=== PATIENT | female | born 1955 | race Caucasian/White ===

== ENCOUNTER → 2019-04-30 | Outpatient (CLI) | payer OTHER ==
--- NOTE | 2019-05-01 09:04 | KCIC ---
MRI right knee without contrast dated 04/30/2019. No comparison available. CLINICAL INDICATION: Right knee pain. TECHNIQUE: Routine multiplanar sequence MR imaging performed. FINDINGS: Moderate tricompartmental hypertrophic change with small marginal osteophytes. Thinning and surface irregularity of the articular cartilage throughout. There are broad zones of full-thickness cartilage loss at the weightbearing surfaces medial femoral condyle and medial tibial plateau. Patchy subchondral edema in the marrow of the medial and lateral femoral condyle and medial tibial plateau. There is also full-thickness cartilage loss at the medial and lateral femoral trochlea and trochlear groove and posterior aspect of lateral femoral condyle. Small joint effusion. Large complex popliteal cyst measures up to 10 cm craniocaudal. There intra-articular loose bodies measuring up to 1.5 cm. The anterior cruciate ligament is not identified and likely chronically torn. There is some mild increased signal in the proximal PCL. Medial and lateral collateral complexes are intact. Iliotibial band, popliteus tendon and pes anserine complex within normal limits. Quadriceps and patellar tendon are intact. No abnormality of the medial or lateral retinaculum. The posterior horn and body of medial meniscus is not identified consistent with tear. There is redundant meniscal tissue at the intercondylar notch. The lateral meniscus is small and blunted morphology. There is focal radial tearing of the lateral meniscal root with a small oblique tear at the posterior horn. IMPRESSION: 1. 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 There there are broad zones of full-thickness cartilage loss at the medial compartment with smaller zones of full-thickness cartilage loss at the anterior and lateral compartment. 2. Complex tearing of the medial meniscus with probable bucket-handle component extending into the intercondylar notch. 3. Complex tear posterior horn and root of lateral meniscus. 4. Small joint effusion and large complex popliteal cyst. There are multiple intra-articular loose bodies. 5. Nonvisualization of the anterior cruciate ligament, likely related to chronic tear. There is mild increased signal of the PCL which could be related to degeneration or intrasubstance partial tearing. Electronically signed by: Rakan Perez MD (05/01/2019 9:01 AM) [facility]
== END | disposition home or self-care (01) ==
LOC: KCIC MRI 15:52
PROVIDERS: ATTEND Family Medicine
DX: S83.231A Complex tear of medial meniscus, current injury, right knee, initial encounter (principal); S83.271A Complex tear of lateral meniscus, current injury, right knee, initial encounter; M17.11 Unilateral primary osteoarthritis, right knee; M94.261 Chondromalacia, right knee; M25.461 Effusion, right knee; M71.21 Synovial cyst of popliteal space [Baker], right knee; X58.XXXA Exposure to other specified factors, initial encounter; Y93.89 Activity, other specified; Y92.89 Other specified places as the place of occurrence of the external cause; Y99.8 Other external cause status
CPT/HCPCS: 73721

== ENCOUNTER → 2019-05-11 | Outpatient (CLI) | payer OTHER ==
[~2019-05-11] MED LIST: ASCO500C PO; CALC500T30 PO
[2019-05-11 09:40] LABS: BASO # 0.1 x10^3/uL (0.0-0.2); BASO % 1 % (0-3); EOS # 0.2 x10^3/uL (0.0-0.7); EOS % 3 % (0-3); HEMATOCRIT 44.4 % (36.0-47.0); HEMOGLOBIN 14.5 g/dL (12.0-15.5); LYMPH # 1.2 x10^3/uL (1.0-4.8); LYMPH % 20 % (24-48); MEAN CORPUSCULAR HEMOGLOBIN 30 pg (25-35); MEAN CORPUSCULAR HGB CONC 33 g/dL (31-37); MEAN CORPUSCULAR VOLUME 91 fL (79-100); MONO # 0.5 x10^3/uL (0.0-1.1); MONO % 9 % (0-9); NEUT % 68 % (31-73); PLATELET COUNT 246 x10^3/uL (140-400); RED BLOOD COUNT 4.91 x10^6/uL (3.50-5.40); RED CELL DISTRIBUTION WIDTH 13.7 % (11.5-14.5); WHITE BLOOD COUNT 5.9 x10^3/uL (4.0-11.0)
[2019-05-11 09:46] LABS: ALBUMIN 3.8 g/dL (3.4-5.0); CREATININE 0.9 mg/dL (0.6-1.0); GFR 62.6
[2019-05-11 09:56] LABS: PROTHROMBIN TIME PATIENT 12.1 SEC (11.7-14.0)
--- NOTE | 2019-05-11 13:22 | EKG ---
[facility] [address] [place] [address] Test Date: 2019-05-11 Test Time: 13:03:02 Pat Name: ROSIO GUERRERO Department: Room: Gender: F Secondary School Teacher: : 1955 Requested By: JEANNETTE VILLAREAL Order Number: [id number] Reading MD: Olman Liu Measurements Intervals Ben Bolt Rate: 62 P: -33 IA: 140 QRS: 29 QRSD: 88 T: 39 QT: 420 QTc: 429 Interpretive Statements SINUS RHYTHM QRS(T) CONTOUR ABNORMALITY CONSIDER INFERIOR INFARCT T ABNORMALITY IN ANTERIOR LEADS ABNORMAL ECG RI6.02 No previous ECG available for comparison Electronically Signed On 05-12-2019 14:15:28 MICE RAISER by Olman Liu
--- NOTE | 2019-05-11 14:40 | RAD ---
EXAM: CHEST 2 VIEWS. HISTORY: Preoperative risk factors. COMPARISON: None. FINDINGS: Frontal and lateral views of the chest are obtained. There are no confluent infiltrates. There is no pneumothorax or pleural effusion. The heart is not enlarged. IMPRESSION: 1. No confluent infiltrates. Electronically signed by: Alexandro Dasilva MD (05/11/2019 2:37 PM) [facility]
== END | disposition home or self-care (01) ==
LOC: SURGPAT 13:16
PROVIDERS: ATTEND Orthopaedic Surgery Sports Medicine
DX: Z01.818 Encounter for other preprocedural examination (principal); M17.11 Unilateral primary osteoarthritis, right knee
CPT/HCPCS: 36415; 71046; 80048; 82040; 82306; 85025; 85610; 85651; 85730; 87641; 93005

== ENCOUNTER 2019-05-25 08:45 | Observation (INO) | payer OTHER ==
[2019-05-25] VITALS (7 sets, daily range): BP systolic 109–135; BP diastolic 68–85
[~2019-05-25] VITALS: Ht 175.3 cm; Wt 83.5 kg
[~2019-05-25 08:45] MED LIST changes: +ACETAMINOPHEN 500 MG TABLET PO PRN; +GABAPENTIN 300 MG CAPSULE. PO PRN; +HYDROmorphone 2 MG/ML VIAL IV PRN; +IV RINGERS,LACTATED 1000ML 1,000 ML IV SCH; +LIDOCAINE 1% PF 2 ML VIAL. ID PRN; +MORPHINE SULFATE 5 MG, KETOROLAC 30MG VIAL 30 MG, ROPIVacaine 0.5% PF 60 ML, EPINEPHrin... INT ART ONE; +ONDANSETRON PF 4 MG/2 ML VIAL. IV PRN; +PROCHLORPERAZINE 10 MG/2 ML VIAL. IV PRN; +TRANEXAMIC ACID 1,000 MG in IV NS 50ML -- 1ST BAG INJ ONE; +TRANEXAMIC ACID 1,000 MG in IV NS 50ML -- 2ND BAG INJ ONE; +fentaNYL PF VIAL 100 MCG/2 ML VIAL IV PRN
[2019-05-25] MEDS ORDERED: fentaNYL PF VIAL 100 MCG/2 ML VIAL ONE ×3 (09:01→12:44)
[2019-05-25] MEDS ORDERED: PROPOFOL 20 ML IV ONE (09:01)
[2019-05-25] MEDS ORDERED: LIDOCAINE 2% PF 5 ML VIAL. ONE (09:01)
[2019-05-25] MEDS ORDERED: ONDANSETRON PF 4 MG/2 ML VIAL. ONE (09:01)
[2019-05-25] MEDS ORDERED: DEXAMETHASONE SOD PHOS 4 MG/ML VIAL ONE (09:01)
[2019-05-25] MEDS: MELOXICAM 7.5 MG TABLET PO PRN ×2 (09:33→13:57)
[2019-05-25] MEDS ORDERED: WARF-78 PO (09:35)
[2019-05-25] MEDS ORDERED: MELO15TA6 PO (09:36)
[2019-05-25 09:37] LABS: PROTHROMBIN TIME PATIENT 11.7 SEC (11.7-14.0)
[2019-05-25] MEDS ORDERED: IV NORMAL SALINE 1000ML BAG 1,000 ML IV SCH (09:47)
[2019-05-25] MEDS ORDERED: diphenhydrAMINE 50 MG/ML VIAL IV PRN (10:00)
[2019-05-25] MEDS ORDERED: 0.9 % SODIUM CHLORIDE 10 ML DISP.SYRIN. IV PRN (10:00)
[2019-05-25] MEDS ORDERED: fentaNYL PF VIAL 100 MCG/2 ML VIAL IV PRN (10:00)
[2019-05-25] MEDS ORDERED: METOCLOPRAMIDE HCL 10 MG/2 ML VIAL. IV PRN (10:00)
[2019-05-25] MEDS ORDERED: PROCHLORPERAZINE 5 MG TABLET. PO PRN (10:00)
[2019-05-25] MEDS ORDERED: ZOLPIDEM 5 MG TABLET. PO PRN (10:00)
[2019-05-25] MEDS ORDERED: IV DEXTROSE 5% 250 ML BAG. IV PRN (10:00)
[2019-05-25] MEDS ORDERED: DEXTROSE 50% 25 GM / 50ML DISP.SYRIN. IV PRN (10:00)
[2019-05-25] MEDS ORDERED: CALCIUM CARBONATE 500 MG TAB.CHEW PO PRN (10:00)
[2019-05-25] MEDS ORDERED: MORPHINE SULFATE 2 MG/ML VIAL. IV PRN (10:00)
[2019-05-25] MEDS ORDERED: SEVOFLURANE 61 TO 120 MINUTES. IH ONE (11:29)
[2019-05-25] MEDS: SENNOSIDES/DOCUSATE 8.6/50MG TABLET. PO SCH (12:00)
[2019-05-25] MEDS: ONDANSETRON PF 4 MG/2 ML VIAL. IV SCH ×2 (12:00→18:00)
[2019-05-25] MEDS: CALCIUM CARBONATE 500 MG TABLET PO SCH (12:00)
[2019-05-25] MEDS: ONDANSETRON ODT 4 MG TAB.RAPDIS. PO SCH ×2 (12:00→18:00)
--- NOTE | 2019-05-25 12:18 | PDOC4 ---
Operative Note Operative Note Date of procedure: 05/25/2019 Surgeon: Suman Riddle.: Roni Dunn, CASANDRA Preoperative diagnosis: Advanced primary right knee degenerative joint disease Postoperative diagnosis: Same Procedure performed: Right total knee arthroplasty Anesthesia: Gen. Findings: Advanced primary right knee degenerative joint disease Tourniquet time: 57 minutes Blood loss: 75 mL Complications: None Components inserted: Huitron and nephew size 5 Journey II Oxinium right femur, 23 mm biconvex patella, 10 mm thick polyethylene articular insert, size 3 journey tibial baseplate Reason for procedure: Patient is a very pleasant female who had tried a rehabilitation program, intra-articular injections, and despite these interventions her pain was still severe progressive and therefore we had a discussion of the risks, benefits, and alternatives to proceeding with the right side today and she wished to do this. Description of procedure: Patient was greeted in the preoperative holding area by myself for the correct extremity was verified and marked. She was taken back to the operative suite and her antibiotics were started as she was brought back. Once in the operating room, she was transferred gently supine to the operative table and secured the bed with successful induction of a general anesthetic. All pressure points were padded. Examination under anesthesia demonstrated range of motion from 2-3 to 110. Knee was stable to varus and valgus. Nonsterile tourniquet was taped in place to her right upper thigh. Padded rest was secured to the bed at her hip as well as across foot of the bed to maintain her leg at 90 passively. Right lower extremity was then prepped and draped in our usual sterile fashion including an Ioban [place]. We then conducted our standard preoperative timeout. I then palpated and marked surface anatomy and angelina a line from my standard anterior midline skin incision. Extremity was exsanguinated with an Esmarch and tourniquet was insufflated to 250 mmHg. Skin was incised with a scalpel and dissected subcutaneous tissue and cauterized bleeders with electrocautery. I identified her quadriceps tendon, borders of her patellar patellar tendon and tibial tubercle. I then made my standard medial parapatellar arthrotomy. I then performed my medial release with combination of electrocautery and Decker elevator. Osteophytes were removed with the rongeur at the proximal medial tibia. The knee was then flexed and the cruciates were excised. I then palpated and marked Whitesides line and the epicondylar axis with electrocautery. I then gained entry to the distal femur with the drill and placed my long intramedullary guide and secured it distally. I then removed this block to the +2 position and re-pinned it. I then made my distal femoral cut after placing my retractors. I then sized for the distal femur, it was a 5. I then impacted this cutting block into position referencing her landmarks. This was secured with threaded pins. I then made my distal femoral cuts and removed the cutting block and loose bony ends. After this, I used the extramedullary tibial guide and pinned this cutting block into position and repositioned my retractors and added my popliteal retractor. I then made my proximal tibial cut and remove the bony piece was circumferentially electrocautery. After this, her leg was brought out into extension and alignment was confirmed with a spacer block and drop adrian. The knee was then repositioned in the retractors were added back in, I then sized and placed my trial tibial baseplate and then pinned this into position followed by drilling and punching for the fins. I then placed my trial femoral component and secured it with a single pin and then reamed and punched for the cam portion. The end was then removed. The cam portion was added in as was a 9 mm articular insert. This was a trial. Range of motion was 0-140. Knee was stable to varus and valgus in extension and mid flexion. I then directed my attention to reaming for my patella, with all components and she had full range of motion, good stability and excellent patellar tracking. I then removed all trial components and thoroughly irrigated the bony surfaces and then proceeded to cement in place her tibial component followed by her femoral component. Care was taken to remove excess cement. A trial articular insert was then engaged into position and the cement was allowed to polymerize with the leg in extension. I again checked for any excess cement. The patellar button was clamped in place and secured with cement. I then injected my periarticular mixture into the carlos-incisional soft tissue envelope. The tourniquet was let down, bleeders were cauterized. She had a fair amount of oozing from the exposed bony surfaces and I elected to place a 1/8 inch Hemovac exiting superolaterally from her knee. After this, the arthrotomy was closed with simple interrupted #1 Vicryl with the exception of a [id number] proximally. Arthrotomy closure tested in flexion and no extravasation of blood was noted. Inverted interrupted 2 was used for subcutaneous tissue and running 3-0 Monocryl in a buried subcuticular fashion was used for skin. Prior to wound closure all cons correct 2. At the conclusion of the surgery, leg was cleansed and dried and our incisional wound vacuum was applied. Surgery was tolerated well by the patient. She was awakened from anesthesia and transferred gently supine to the hospital bed and taken to the PACU in a stable and extubated condition. Postoperative plan is to admit her to the floor, weightbearing as tolerated, she will receive DVT and antibiotic prophylaxis. She will also receive PT and OT. SUMAN VILLAREAL II, MD May 25, 2019 12:18
[2019-05-25] MEDS ORDERED: SEVOFLURANE > 120 MINUTES. IH ONE (12:31)
[2019-05-25] MEDS: fentaNYL PF VIAL 100 MCG/2 ML VIAL IV PRN ×2 (12:48→13:05)
[2019-05-25] MEDS ORDERED: MORPHINE SULFATE 2 MG/ML VIAL. ONE (12:51)
[2019-05-25] MEDS: MORPHINE SULFATE 2 MG/ML VIAL. IV PRN ×2 (13:19→13:45)
--- NOTE | 2019-05-25 13:31 | RAD ---
Examination: KNEE RIGHT 2V History: Postoperative right knee Comparison/Correlation: None Findings: Frontal and lateral views of the right knee were obtained by portable technique. Overlying dressings at the anterolateral aspect about the right knee may limit evaluation for fine detail. No radiopaque foreign body suspected. Drainage catheter tubing is present terminating overlying the right knee joint capsule. Gas within the joint capsule is present. Soft tissue gas also seen compatible with postoperative status. Total right knee joint arthroplasty is present with no evidence of loosening. Impression: Total right knee joint arthroplasty is intact. No fracture or bone destruction. Electronically signed by: Pelon Paul MD (05/25/2019 1:28 PM) [id number]
--- NOTE | 2019-05-25 14:55 | NUR ---
Patient arrived to the unit around 1425 from PACU in a bed. Daughter at bedside. She is on 2L oxygen at this time, vitals stable. IV infusing properly without concern. Dressing to right knee covered with KATIE wrap, dry, and intact. KEYSHAWN working properly with green light flashing and hemovac in place. Pain rated at roughly 3-4 but no pain medication is requested yet at this time. PT coming in shortly to evaluate. Pulses +2 bilaterally in her feet and movement intact. Will continue to monitor.
[2019-05-25] MEDS: FERROUS SULFATE 325 MG TABLET. PO SCH (15:53)
[2019-05-25] MEDS: oxyCODONE IR 5 MG TABLET PO PRN ×2 (15:56→22:18)
[2019-05-25] MEDS ORDERED: WARFARIN 7.5 MG TABLET. PO ONE (16:00)
--- NOTE | 2019-05-25 22:28 | NUR ---
Ambulated to toilet w/ a "skating motion." States her right foot is numb and tingly.Will monitor.
[2019-05-26 03:20] VITALS: BP 122/70
[2019-05-26] MEDS: oxyCODONE IR 5 MG TABLET PO PRN ×4 (03:29→21:22)
[2019-05-26] MEDS: ONDANSETRON PF 4 MG/2 ML VIAL. IV SCH ×2 (05:38)
[2019-05-26] MEDS: ONDANSETRON ODT 4 MG TAB.RAPDIS. PO SCH ×2 (05:39)
[2019-05-26] MEDS ORDERED: MAGNESIUM HYDROXIDE 2,400 MG/30 ML ORAL.SUSP. PO PRN (06:00)
[2019-05-26] MEDS: traMADol 50 MG TABLET PO SCH ×3 (06:31→18:41)
[2019-05-26 06:38] VITALS: BP 94/63
--- NOTE | 2019-05-26 06:41 | NUR ---
States the dorsiflexion in right foot has recovered. Ultram started. BP 94/63.
[2019-05-26 07:47] LABS: PROTHROMBIN TIME PATIENT 13.8 SEC (11.7-14.0)
[2019-05-26] MEDS: FERROUS SULFATE 325 MG TABLET. PO SCH ×2 (08:00→17:00)
[2019-05-26 08:35] VITALS: BP 103/67
[2019-05-26] MEDS: CALCIUM CARBONATE 500 MG TABLET PO SCH (08:39)
[2019-05-26] MEDS: SENNOSIDES/DOCUSATE 8.6/50MG TABLET. PO SCH (08:39)
[2019-05-26] MEDS: ACETAMINOPHEN 500 MG TABLET PO SCH ×3 (08:40→21:16)
--- NOTE | 2019-05-26 10:48 | PDOC ---
ORTHO PROGRESS NOTES Subjective She feels like she is doing well. She has some difficulty moving her foot last night but this is resolved Vitals Vital Signs Date Time Temp Pulse Resp B/P (MAP) Pulse Ox O2 Delivery O2 Flow Rate FiO2 05/26/19 10:07 Room Air 05/26/19 08:35 78 103/67 (79) 05/26/19 06:38 98.5 20 94 98.5 05/25/19 14:30 2.0 Labs Laboratory Tests Test 05/25/19 09:10 05/26/19 06:45 Prothrombin Time 11.7 SEC (11.7-14.0) 13.8 SEC (11.7-14.0) Prothromb Time International Ratio 0.9 (0.8-1.1) 1.1 (0.8-1.1) Activated Partial Thromboplast Time 24 SEC (24-38) Laboratory Tests Test 05/26/19 06:45 Prothrombin Time 13.8 SEC (11.7-14.0) Prothromb Time International Ratio 1.1 (0.8-1.1) Notes She is awake and alert and lying in bed. Dressing is intact. Normal motor and sensation are present in her right lower extremity Assessment and Plan She will continue PT and OT, Coumadin. We will see how she progresses, I think she progressed well enough that we can consider discharge home tomorrow. JEANNETTE VILLAREAL II, MD May 26, 2019 10:48
--- NOTE | 2019-05-26 11:10 | NUR ---
Pharmacy Warfarin Dosing Note S:Pharmacy consulted to assist with anticoagulation therapy started 05/25/19 with target INR: 1.6 - 2.5 O:ROSIO GUERRERO is a 64 year old F with TKA LABS: Last INR: 1.1 Last HGB: -- Last HCT: -- Last PLT: -- Last dose of 7.5 mg given on 05/25/19 at 1601 Vitamin K given: N Drug Interaction Changes: None A:INR of 1.1 is below desired range. Target range for this patient is: 1.6 - 2.5 P: Warfarin dose: 5 mg Today at 1600 Bridge Therapy: None Next INR due 05/27/19 Pharmacy anticoagulation service will continue to follow. AMENA CONNOR RPH, 05/26/19 1536
[2019-05-26 11:50] VITALS: BP 117/70
[2019-05-26] MEDS ORDERED: ONDANSETRON ODT 4 MG TAB.RAPDIS. PO PRN (12:00)
[2019-05-26] MEDS ORDERED: ONDANSETRON PF 4 MG/2 ML VIAL. IV PRN (12:00)
[2019-05-26] MEDS: MULTIVITAMIN with MINERAL TABLET. PO SCH (12:49)
[2019-05-26 15:00] VITALS: BP 102/62
[2019-05-26] MEDS ORDERED: BISACODYL 10 MG SUPP.RECT. PR PRN (16:00)
[2019-05-26] MEDS: WARFARIN 5 MG TABLET. PO SCH (16:59)
[2019-05-26 19:00] VITALS: BP 103/58
[2019-05-27] MEDS: traMADol 50 MG TABLET PO SCH ×3 (01:01→11:33)
[2019-05-27] MEDS: ACETAMINOPHEN 500 MG TABLET PO SCH ×3 (03:00→14:36)
[2019-05-27 05:32] VITALS: BP 111/75
[2019-05-27 05:34] LABS: HEMATOCRIT 33.3 % (36.0-47.0); HEMOGLOBIN 10.8 g/dL (12.0-15.5)
[2019-05-27 05:52] LABS: PROTHROMBIN TIME PATIENT 14.5 SEC (11.7-14.0)
--- NOTE | 2019-05-27 06:52 | NUR ---
0600 dose of Ultram held as pt is sleeping.
[2019-05-27] MEDS: CALCIUM CARBONATE 500 MG TABLET PO SCH (07:39)
[2019-05-27] MEDS: MULTIVITAMIN with MINERAL TABLET. PO SCH (07:39)
[2019-05-27] MEDS: SENNOSIDES/DOCUSATE 8.6/50MG TABLET. PO SCH (07:39)
[2019-05-27] MEDS: FERROUS SULFATE 325 MG TABLET. PO SCH (07:39)
[2019-05-27] MEDS: oxyCODONE IR 5 MG TABLET PO PRN ×2 (07:41→14:36)
[2019-05-27] MEDS ORDERED: POLYETHYLENE GLYCOL 3350 17 GM PACKET. PO ONE (08:00)
--- NOTE | 2019-05-27 08:14 | PDOC ---
ORTHO PROGRESS NOTES Subjective Patient progressing well but with complaint of constipation. Post-op Day: 2 Procedure R TKA Vitals Vital Signs Date Time Temp Pulse Resp B/P (MAP) Pulse Ox O2 Delivery O2 Flow Rate FiO2 05/27/19 07:41 93 Room Air 05/27/19 05:32 98.2 93 18 111/75 (87) 98.2 Labs Laboratory Tests Test 05/25/19 09:10 05/26/19 06:45 05/27/19 05:13 Prothrombin Time 11.7 SEC (11.7-14.0) 13.8 SEC (11.7-14.0) 14.5 SEC (11.7-14.0) Prothromb Time International Ratio 0.9 (0.8-1.1) 1.1 (0.8-1.1) 1.2 (0.8-1.1) Activated Partial Thromboplast Time 24 SEC (24-38) Hemoglobin 10.8 g/dL (12.0-15.5) Hematocrit 33.3 % (36.0-47.0) Mean Corpuscular Hemoglobin Concent 32 g/dL (31-37) Laboratory Tests Test 05/27/19 05:13 Hemoglobin 10.8 g/dL (12.0-15.5) Hematocrit 33.3 % (36.0-47.0) Mean Corpuscular Hemoglobin Concent 32 g/dL (31-37) Prothrombin Time 14.5 SEC (11.7-14.0) Prothromb Time International Ratio 1.2 (0.8-1.1) Notes awake and alert sitting up in bed Assessment and Plan POD # 2 S/P R TKA motor and sensation intact distally dressing dry and intact with one small spot of drainage Constipation being treated continue PT/OT may go home today RANULFO RG APRN May 27, 2019 08:14
--- NOTE | 2019-05-27 08:49 | DISCH ---
DISCHARGE INSTRUCTIONS Condition on Discharge Condition on Discharge: Stable Activity After Discharge Activity Instructions for Disc: Activity as tolerated, Avoid exertion, Prog ressive ambulation Bathing Instructions: Shower-keep dressing dry, No Tub Bath until see Exercise Instruction after Dis: Walk 30 min, 3 x per week, Exercise per therapy Driving Instructions after Dis: Do not drive Weight Bearing Status after Di: As tolerated Diet after Discharge Diet after Discharge: Regular Liquid Texture: Thin Liquid Wound Incision Care Wound/Incision Care: Ice to area for comfort, Keep wound/cast CDI, Do not change dressing, Reinforce dressing PRN Other wound/incision instructi: DO NOT change KEYSHAWN dressing. It is to remain in place for two weeks. Wound Care Equipment: Dressings Community/Resources/Services Services at Discharge: Outpatient Therapy Contacting the after DC Call your doctor for: Concerns you may have Follow-Up Follow Up With: Dr Villareal in 10-14 days [phone] Warfarin Follow-Up Warfarin Follow UP: per Pharmacy JEANNETTE VILLAREAL II, MD May 27, 2019 08:49
[2019-05-27] MEDS ORDERED: OXYC-325 PO (09:22)
--- NOTE | 2019-05-27 13:29 | NUR ---
Pharmacy Warfarin Dosing Note S:Pharmacy consulted to assist with anticoagulation therapy started 05/25/19 with target INR: 1.6 - 2.5 O:ROSIO GUERRERO is a 64 year old F with TKA LABS: Last INR: 1.2 Last HGB: 10.8 Last HCT: -- Last PLT: -- Last dose of 5 mg given on 05/26/19 at 1601 Previous Regimen: Vitamin K given: N Drug Interaction Changes: None Ongoing Drug Interactions: A:INR of 1.2 is below desired range. Target range for this patient is: 1.6 - 2.5 P: Warfarin dose: 5 mg Today at 1600 Bridge Therapy: None Next INR due IN AM Pharmacy anticoagulation service will continue to follow. CAMILA KONG [facility], 05/27/19 [id number]
[2019-05-27] MEDS: WARFARIN 5 MG TABLET. PO SCH (14:37)
--- NOTE | 2019-05-27 14:51 | NUR ---
Patient left around 1445 with her sister. Coumadin given to patient by the pharmacist and instructions done. Discharge education completed by this nurse, Dr Huitron, therapy, and pharmacy. No concerns noted upon discharge. KEYSHAWN dressing intact with no complications noted. IV discontinued on third shift lieutenant. Pain medication and Coumadin given prior to dismissal. Patient left with all her belongings.
--- NOTE | 2019-05-27 16:06 | PATHOLOGY ---
[facility] Accession Number: [id number] . 01 Material submitted: . knee - RIGHT KNEE BONE AND SOFT TISSUE. Modifiers: right . 01 Clinical history: . Primary osteoarthritis of both knees . 02 Diagnosis: Segments of bone and soft tissue, right total knee arthroplasty: - Advanced degenerative arthritis. - Synovial tissue showing focal mild chronic inflammation. (JPM:volleyball assistant coach; 05/27/2019) MBR 05/27/2019 1031 Local . 02 Electronically signed: . Evan Newell MD, Pathologist NPI- [id number] . 01 Gross description: . The specimen is received in formalin, labeled "Laura Tinajero, right knee bone and soft tissue" and consists of multiple segments of bone and soft tissue including the tibial plateau measuring 13.8 x 12.0 x 3.0 cm. The meniscus is present. The articular surfaces display extensive eburnation and osteophytes are present. Sales Engagement Manager sections are submitted in A1-A2 with A2 following decalcification (SDY; 05/25/2019) SYU/SYU 05/27/2019 1029 Local . 02 Pathologist provided ICD-10: M17.11 . 02 CPT . 861100, 607337 Specimen Comment: A courtesy copy of this report has been sent to [phone], [phone] Specimen Comment: [phone] Specimen Comment: Report sent to / DR BOB Performed at: 01 [facility] [address] [id number] MD Al Randolph MD Phone: [phone] Performed at: 02 [facility] [address] [place], [place] [id number] MD Evan Newell MD Phone: [phone]
--- NOTE | 2019-05-28 08:58 | PDOC3 ---
Discharge Summary Visit Information Date of Admission: May 25, 2019 Date of Discharge: May 27, 2019 Admitting Diagnosis: Advanced primary Right knee DJD Brief Hospital Course Allergies Allergies Coded Allergies Type Severity Reaction Last Updated Verified No Known Drug Allergies 05/11/19 No Vital Signs Vital Signs Date Time Temp Pulse Resp B/P (MAP) Pulse Ox O2 Delivery O2 Flow Rate FiO2 05/27/19 14:36 93 Room Air Lab Results Laboratory Tests Test 05/27/19 05:13 Hemoglobin 10.8 g/dL (12.0-15.5) Hematocrit 33.3 % (36.0-47.0) Mean Corpuscular Hemoglobin Concent 32 g/dL (31-37) Prothrombin Time 14.5 SEC (11.7-14.0) Prothromb Time International Ratio 1.2 (0.8-1.1) Brief Hospital Course Ms. Tinajero is a 64 old female who presented to my outpatient orthopedic surgery clinic with complaints of severe and progressive pain that failed conservative therapies including injections. We had a discussion of the risks, benefits, alternatives to total knee arthroplasty and she elected to proceed. She tolerated surgery well and recovered well from anesthesia in the PACU. She was then taken to the joint Center for care and observation. She did receive PT, OT, DVT and antibiotic prophylaxis. She recovered well from surgery and remained hemodynamically stable and afebrile throughout the hospitalization. She did have a brief episode of constipation without any abdominal complaints, alleviated with oral stimulants. Pain was controlled on oral pain medicine at the time of discharge. Good progress was made with therapy throughout the hospitalization, and activities of daily living were accomplished by the patient. The incision was clean dry and intact and the operative extremity had normal motor and sensation. Discharge Information Condition at Discharge: Stable Follow Up: Weeks Disposition/Orders: D/C to Home Scheduled Ascorbic Acid (Vitamin C) 500 Mg Capsule.er, 500 MG PO DAILY for VITAMIN SUPPLEMENT , (Reported) Entered as Reported by: MARTIN ROBB on 05/11/191402 Last Action: HELD on 05/25/19950 by LUKAS VILLAREAL MD Calcium Carbonate (Calcium) 500 Mg Tablet, 500 MG PO DAILY for SUPPLEMENT , (Reported) Entered as Reported by: MARTIN ROBB on 05/11/191402 Last Action: Continued on 05/25/19950 by LUKAS VILLAREAL MD Warfarin Sodium (Coumadin) 5 Mg Tablet, 5 MG PO DAILY for PREOP, #30 (Reported) Entered as Reported by: GRIFFIN BARGER on 05/25/19934 Last Taken: Unknown Dose on 05/24/191699 Last Action: Continued on 05/25/19950 by LUKAS VILLAREAL MD Scheduled PRN Meloxicam (Mobic) 15 Mg Tablet, 15 MG PO DAILY PRN for X1, (Reported) Entered as Reported by: GRIFFIN BARGER on 05/25/19935 Last Taken: Unknown Dose on 05/24/191699 Last Action: HELD on 05/25/19950 by LUKAS VILLAREAL MD Oxycodone HCl/Acetaminophen (Percocet 5-325 mg Tablet) 1 Each Tablet, 1 TAB PO PRN Q3HRS PRN for PAIN for 5 Days, #50 Ref 0 (Reported) Take every 3-4 hours as needed for pain Entered as Reported by: ZAK HICKMAN on 05/27/19921 Patient Instructions Patient Instructions She will be discharged home. Patient is scheduled already on outpatient physical therapy. The patient will be on Coumadin for a month. She can weight-bear as tolerated. Worrisome signs and symptoms that should prompt a phone call to my office were discussed. We'll see her back in 2 weeks, sooner should a problem arise. JEANNETTE VILLAREAL II, MD May 28, 2019 08:58
== END 2019-05-27 14:45 | disposition home or self-care (01) ==
LOC: SURG 08:45 → 4 SOUTHEST 09:47
PROVIDERS: ADMIT Orthopaedic Surgery Sports Medicine; ATTEND Orthopaedic Surgery Sports Medicine
DX: M17.11 Unilateral primary osteoarthritis, right knee (principal); K59.00 Constipation, unspecified
CPT/HCPCS: 27447; 36415; 73560; 85014; 85018; 85610; 85730; 86850; 86900; 86901; 88304; 88311; 96365; 96366; 97110; 97116; 97150; 97162; 97166; 97530; 97535; A7015; C1713; G0378; G0379; J0171; J0696; J1100; J1885; J2001; J2270; J2405; J2704; J2795; J3010; J7030; C1769